=== PATIENT | male | born 1985 | race Caucasian/White ===

== ENCOUNTER 2018-08-07 18:33 | Emergency (ER) | payer BC, OTHER ==
[~2018-08-07] VITALS: Ht 172.7 cm; Wt 83.6 kg
[2018-08-07 18:37] VITALS: Ht 172.7 cm; Wt 83.6 kg
[2018-08-07] MEDS ORDERED: SOD CHLORIDE 0.9% 1,000 ML IV STA (19:01)
[2018-08-07] MEDS ORDERED: KETOROLAC 30 MG INJ IV STA (19:01)
--- NOTE | 2018-08-07 19:49 | ERD ---
ER Documentation Chief Complaint Chief Complaint non radiationg chest pain x 2 hours, c/o sob HPI Very pleasant 32-year-old gentleman otherwise healthy presents with sudden onset of anterior chest pain. He describes it is sharp, central and worse when laying flat, improved when sitting forward. Pain is also somewhat pleuritic and worse to touch and rotational movement. He denies any recent illness no fevers or chills, no shortness of breath. He denies any lower extremity swelling recent travel or immobilization or surgery. No family history of cardiac disease or exertional symptoms. ROS All systems reviewed and are negative except as per history of present illness. Medications Home Meds Active Scripts Ondansetron (Ondansetron Odt) 4 Mg Tab.rapdis, 4 MG PO Q6H PRN for NAUSEA AND/OR VOMITING, #10 TAB Prov:LACEY NIEVES MD 08/07/18 Hydrocodone/Acetaminophen ([place] 10-325 Tablet) 1 Each Tablet, 1 TAB PO Q6H PRN for PAIN, #5 TAB Prov:LACEY NIEVES MD 08/07/18 Colchicine* (Colcrys*) 0.6 Mg Tablet, 0.6 MG PO BID for 30 Days, TAB Prov:LACEY NIEVES MD 08/07/18 Ibuprofen* (Motrin*) 800 Mg Tab, 800 MG PO TID PRN for PAIN AND OR ELEVATED TEMP for 7 Days, TAB Prov:LACEY NIEVES MD 08/07/18 Allergies Allergies: Coded Allergies: No Known Drug Allergies (Verified Allergy, Unknown, 08/07/18) PMhx/Soc Medical and Surgical Hx: pt denies Medical Hx, pt denies Surgical Hx Hx Alcohol Use: Yes (occassional) Hx Substance Use: Yes (marijuana) Hx Tobacco Use: No Smoking Status: Current some day smoker FmHx Family History: No diabetes Physical Exam Vitals Vital Signs Date Temp Pulse Resp B/P (MAP) Pulse Ox O2 O2 Flow FiO2 Time Delivery Rate 08/07/18 98.9 109 18 145/103 98 18:37 (117) Physical Exam General: Uncomfortable Head: Normocephalic, atraumatic. Eyes: Pupils equally reactive, EOM intact ENT: Moist mucous membranes Neck: Supple, no lymphadenopathy Respiratory: Lungs clear bilaterally, no distress Cardiovascular: RRR, no murmurs, rubs, or gallops, very reproducible anterior chest wall tenderness to the sternal costal margins Abdominal: Soft, non-tender, non-distended, no peritoneal signs : Deferred MSK: No edema, no unilateral swelling, 5/5 strength Neurologic: Alert and oriented, moving all extremities, normal speech, no focal weakness, no cerebellar signs Skin: No rash Psych: Normal mood Result Diagram: 08/07/18190708/07/[id number] Results 24 hrs Laboratory Tests Test 08/07/18 19:08 White Blood Count 18.3 10^3/ul Red Blood Count 5.42 10^6/ul Hemoglobin 16.5 g/dl Hematocrit 48.6 % Mean Corpuscular Volume 89.7 fl Mean Corpuscular Hemoglobin 30.4 pg Mean Corpuscular Hemoglobin Concent 34.0 g/dl Red Cell Distribution Width 13.7 % Platelet Count 280 10^3/UL Mean Platelet Volume 9.8 fl Immature Granulocytes % 0.500 % Neutrophils % 68.8 % Lymphocytes % 20.7 % Monocytes % 8.3 % Eosinophils % 1.3 % Basophils % 0.4 % Nucleated Red Blood Cells % 0.0 /100WBC Immature Granulocytes # 0.090 10^3/ul Neutrophils # 12.6 10^3/ul Lymphocytes # 3.8 10^3/ul Monocytes # 1.5 10^3/ul Eosinophils # 0.2 10^3/ul Basophils # 0.1 10^3/ul Nucleated Red Blood Cells # 0.0 10^3/ul Prothrombin Time 13.2 Sec Prothrombin Time Ratio 1.0 INR International Normalized Ratio 0.99 Activated Partial Thromboplast Time 30.5 Sec D-Dimer 284.89 ng/ml D-Dimer Comment Sodium Level 144 mmol/L Potassium Level 4.0 mmol/L Chloride Level 110 mmol/L Carbon Dioxide Level 21 mmol/L Anion Gap 13 Blood Urea Nitrogen 12 mg/dl Creatinine 0.92 mg/dl Est Glomerular Filtrat Rate mL/min > 60 mL/min Glucose Level 110 mg/dl Calcium Level 9.7 mg/dl Troponin I < 0.012 ng/ml Current Medications Medications Dose Sig/Suraj Start Time Status Last (Trade) Ordered Route PRN Stop Time Admin Dose Reason Admin Sodium 1,000 ml @ Q1H STAT 08/07/18 DC 08/07/18 Chloride 1,000 mls/hr IV 19:01 19:21 08/07/18 20:00 Ketorolac 30 mg ONCE STAT 08/07/18 DC 08/07/18 Tromethamine IV 19: 19:05 (Toradol) 08/07/18 19:02 Procedures/MDM EKG, MONITORS, & DIAGNOSTIC IMAGING: EKG: I reviewed and interpreted a 12-lead EKG. Rhythm: Normal sinus rhythm ST Changes: No contiguous ST segment elevations T waves: No contiguous T wave inversions Impression: No evidence of acute cardiac ischemia EKG: I reviewed and interpreted a 12-lead EKG. Rhythm: Normal sinus rhythm ST Changes: No contiguous ST segment elevations T waves: No contiguous T wave inversions Impression: No evidence of acute cardiac ischemia Chest x-ray: I reviewed and interpreted a 1 view of the chest Mediastinum: No enlargement Cardiac silhouette: No cardiomegaly Airspace: Clear lung seymour bilaterally without evidence of pneumothorax Bones: No evidence of fracture LAB INTERPRETATION: I reviewed the laboratory testing and it shows leukocytosis MEDICAL DECISION MAKING: The patient's symptoms are very consistent with likely pericarditis. The patient has positional chest pain improved with sitting forward. No significant CO depression or ST elevation on EKG. Lower clinical concern for ACS given his age and limited risk profile though troponin would be appropriate. Patient has no migratory pain to suggest dissection. Low risk profile for pulmonary embolism though d-dimer would be appropriate. ER COURSE: * Nonsteroidal anti-inflammatory provided * Patient has near complete resolution of symptoms feeling much better, more comfortable. Troponin is negative. Leukocytosis likely secondary to inflammatory reaction or stress response. D-dimer negative * Clinical findings still very consistent with acute pericarditis. * The patient has no high risk findings that would suggest need for inpatient hospitalization. Avoidance of strenuous activity, colchicine and NSAID therapy would be appropriate. Patient is to follow-up with primary care physician, duration of therapy may need to be extended based on symptoms. 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 Return for symptoms that include syncope, fever, shortness of breath or worsening symptomatology. * We did discuss possibility of serial enzymes with the patient is refusing verbalizing understanding of risks. He is low risk began with an very low clinical concern for ACS. CONSULTATION: None DISPOSITION PLAN: The patient does not have an identifiable emergent medical condition that warrants inpatient hospitalization at this time. The patient is deemed safe for discharge with outpatient follow-up. We discussed follow up with the patient's primary care doctor within 24 to 48 hours as needed. We also discussed return to the emergency room for worsening symptoms or worsening condition. Outpatient referral: Cardiology Discharge Medications: Colchicine, Motrin, [place], Zofran NARCOTIC MEDICATION: The patient has been prescribed a narcotic medication during this encounter. The patient has been warned about the use of narcotics. The patient should not drive or operate heavy machinery while taking this medication. The patient was also warned about the addictive properties of narcotic medications. Narcan prescription was NOT provided given the following criteria: 1. No more than 5 tablets of [place] 10 mg or 10 tablets of [place] 5 mg were prescribed. 2. Concomitant opiate and benzodiazepine prescriptions were not provided. 3. There is no obvious evidence of prior history of opiate abuse or overdose. Departure Diagnosis: Primary Impression: Pericarditis Pericarditis type: idiopathic Chronicity: acute Qualified Codes: I30.0 - Acute nonspecific idiopathic pericarditis Additional Impression: Chest pain Chest pain type: unspecified Qualified Codes: R07.9 - Chest pain, unspecified Condition: Stable LACEY NIEVES MD Aug 07, 2018 19:49
[2018-08-07] MEDS ORDERED: ONDA4TAB14 PO (20:08)
[2018-08-07] MEDS ORDERED: HYDR-3980 PO (20:08)
[2018-08-07] MEDS ORDERED: IBUP800T48 PO (20:08)
[2018-08-07] MEDS ORDERED: COLC0.6T6 PO (20:08)
[2018-08-07 20:32] VITALS: BP 123/78; PULSE 96; RESP 20
== END 2018-08-07 20:33 | disposition home or self-care (01) ==
LOC: E/R 18:33
DX: I30.0 Acute nonspecific idiopathic pericarditis (principal); F17.210 Nicotine dependence, cigarettes, uncomplicated
CPT/HCPCS: 36415; 71045; 80048; 84484; 85025; 85378; 85610; 85730; 93005; 96361; 96374; 99285; J1885; J7030